=== PATIENT | female | born 1965 | race Caucasian/White ===

== ENCOUNTER 2016-11-14 07:00 | Day surgery (SDC) | payer OTHER ==
[~2016-11-14] VITALS: Ht 160 cm; Wt 68.0 kg
[~2016-11-14 07:00] MED LIST: 0.9% Sodium Chloride 1,000 ML IV SCH; ASCO500W7 PO; CHOL10008 PO; Sodium Chloride LOK Flush 10 mL Syringe IV PRN; [UNRECOGNIZED DRUG - CODE] PO; [UNRECOGNIZED DRUG - CODE] PO; fentaNYL-PF 50 mCg/mL 2 mL Inj IVPUSH PRN
[2016-11-14 07:13] VITALS: BP 125/71; PULSE 78; RESP 16; O2SAT 100
[2016-11-14 07:57] VITALS: BP 100/56; PULSE 70; RESP 14; O2SAT 98
[2016-11-14 08:07] VITALS: BP 97/69; PULSE 61; RESP 16; O2SAT 97
[2016-11-14 08:13] VITALS: BP 105/69; PULSE 79; RESP 16; O2SAT 99
--- NOTE | 2016-11-14 08:16 | ENDO ---
[address] [address] ENDOSCOPY PROCEDURE PATIENT: EDGARDO ALEJANDRO : 1965 MR#: [id number] ADMIT: 11/14/2016 JOB ID: [id number] DATE: 11/14/2016 TYPE OF OPERATION: Colonoscopy. PREOPERATIVE DIAGNOSIS(ES): Colorectal cancer screening. POSTOPERATIVE DIAGNOSIS(ES): Mild sigmoid diverticulosis. ANESTHESIA: 1. Fentanyl 100 mcg. 2. Versed 5 mg IV administered. BLOOD LOSS: Minimal. DESCRIPTION OF PROCEDURE: After risks and benefits were explained to the patient, informed consent was obtained. After anesthesia administered, colonoscope was then inserted from the rectum to cecum. Mucosa carefully examined. Prep of the patient was excellent. After procedure was done, the scope was withdrawn and procedure terminated. FINDINGS: Upon inspection of the anus, no masses, hemorrhoids, ulcers, or fissures were seen. Throughout the entire examination, there was mild sigmoid diverticulosis. No polyps or masses were seen. Retroflexion normal. IMPRESSIONS: Mild sigmoid diverticulosis. RECOMMENDATIONS: 1. High-fiber diet. 2. Repeat colonoscopy in 10 years for colorectal cancer screening.
== END 2016-11-14 23:59 | disposition home or self-care (01) ==
LOC: END 07:00
PROVIDERS: ATTEND Internal Medicine Gastroenterology
DX: Z12.11 Encounter for screening for malignant neoplasm of colon (principal); K57.30 Diverticulosis of large intestine without perforation or abscess without bleeding; Z83.71 Family history of colonic polyps; G40.909 Epilepsy, unspecified, not intractable, without status epilepticus
CPT/HCPCS: G0105; J2250; J7030